=== PATIENT | female | born 1990 | race Asian ===

== ENCOUNTER → 2016-10-11 21:25 | Emergency (ER) | payer OTHER ==
[~2016-10-11 21:25] MED LIST: DICYCLOMINE HCL10 MG PO; NEURONTIN100 MG; OMEPRAZOLE20 M2; OMEPRAZOLE20 M2 PO; PHENERGAN25 MG PO; REGLAN5 MG; ZANAFLEX6 MG
== END | disposition home or self-care (01) ==
LOC: CED 21:25
DX: Z53.21 Procedure and treatment not carried out due to patient leaving prior to being seen by health care provider (principal)

== ENCOUNTER 2016-10-26 17:38 | Emergency (ER) | payer OTHER ==
--- NOTE | ~2016-10-26 | CR63 ---
[facility] A Service of [facility] RADIOLOGY TEXT RESULTS PATIENT: FRANCES WHITE LOCATION: [facility] : 86 UNIT #: [id number] AGE: [address]: Polo Patrick MD SEX: F ORDER DR: [id number] [facility] [address] [place], [place] [address] [id number] MR#: [id number] Acc #: [id number] NAME: FRANCES WHITE : 1990 SEX: F STUDY DATE/TIME: 10/26/2016 18:20 UNIT: [facility] ROOM: STUDY DESCRIPTION: CR Chest 2 View Attending Physician: Polo Patrick M.D. Ordering Physician: Christopher Mckeon M.D. Primary Care Physician: Primary Care Physician No MEDICAL IMAGING REPORT This report is preliminary unless electronic signature is present EXAM Chest 2 views INDICATION Shortness of air and chest pain. Weakness. Positive smoking history. FINDINGS PA and lateral views of the chest without comparison. Heart and mediastinal contours are normal. The lungs are clear. No pleural effusion. IMPRESSION Normal chest radiograph. Dictated by... Ken Frost M.D. THIS IS AN ELECTRONICALLY VERIFIED REPORT Ken Frost M.D. at 10/27/2016 10:29 AM MORALES/joel TD: 10/27/2016 09:18 JOB #: [id number] MEDICAL IMAGING REPORT COPY
== END 2016-10-26 19:58 | disposition home or self-care (01) ==
LOC: CED 17:38
DX: S20.219A Contusion of unspecified front wall of thorax, initial encounter (principal); F17.200 Nicotine dependence, unspecified, uncomplicated; F19.10 Other psychoactive substance abuse, uncomplicated; V49.60XA Unspecified car occupant injured in collision with unspecified motor vehicles in traffic accident, initial encounter; Y92.410 Unspecified street and highway as the place of occurrence of the external cause
CPT/HCPCS: 71020; 99283